=== PATIENT | female | born 2000 | race Hispanic/Latino ===

== ENCOUNTER 2019-03-02 21:58 | Emergency (ER) | payer OTHER ==
[2019-03-02] MEDS ORDERED: DICYCLOMINE HCL 20 MG TAB ONE (22:48)
[2019-03-02] MEDS ORDERED: SIMETHICONE 80 MG TAB.CHEW ONE (22:48)
[2019-03-02] MEDS ORDERED: ONDANSETRON ODT 4 MG TAB ONE (22:48)
[2019-03-02] MEDS ORDERED: IBUPROFEN 800 MG TAB ONE (23:09)
[2019-03-02] MEDS ORDERED: SODIUM CHLORIDE 0.9% 1000ML 1,000 ML IV ONE (23:09)
== END 2019-03-02 23:39 | disposition home or self-care (01) ==
LOC: EDH 21:58
DX: R11.2 Nausea with vomiting, unspecified (principal); R19.7 Diarrhea, unspecified; R10.30 Lower abdominal pain, unspecified; Z90.49 Acquired absence of other specified parts of digestive tract
CPT/HCPCS: 96372; 99284; J7030